=== PATIENT | female | born 1990 | race Caucasian/White ===

== ENCOUNTER 2019-08-15 20:50 | Emergency (ER) | payer OTHER ==
[~2019-08-15] VITALS: Ht 157.5 cm; Wt 62.1 kg
[2019-08-15] MEDS ORDERED: HYDROXYZINE HCL25 M2 PO (21:12)
[2019-08-15] MEDS ORDERED: DULOXETINE HCL30 MG PO (21:12)
[2019-08-15] MEDS ORDERED: CORLANOR5 MG PO (21:13)
[2019-08-15] MEDS ORDERED: ALTAVERA1 EACH PO (21:13)
[2019-08-15] MEDS ORDERED: BYSTOLIC10 MG PO (21:13)
[2019-08-15] MEDS ORDERED: PRILOSEC10 MG PO (21:14)
[2019-08-15] MEDS ORDERED: LAMOTRIGINE250 MG PO (21:15)
[2019-08-15] MEDS ORDERED: XANAX 0.5 MG0.5 MG PO (21:16)
[2019-08-15] MEDS ORDERED: BACLOFEN 10MG T10 MG PO (21:16)
[2019-08-15] MEDS ORDERED: BOTOX200 UNIT INJECTION (21:17)
[2019-08-15] MEDS ORDERED: MIDODRINE HCL 55 M1 PO (21:17)
[2019-08-15] MEDS ORDERED: BIOTIN1 M1 PO (21:18)
[2019-08-15] MEDS ORDERED: ONZETRA XSAIL11 MG NARES (21:18)
[2019-08-15] MEDS ORDERED: RIZATRIPTAN10 MG PO (21:18)
[2019-08-15] MEDS ORDERED: EMGALITY120 MG/1 M INJECTION (21:19)
[2019-08-15 21:23] LABS: ABSOLUTE BASOPHILS 0.1 thou/uL (0.0-0.2); ABSOLUTE EOSINOPHILS 0.1 thou/uL (0.0-0.7); ABSOLUTE LYMPHOCYTES 2.4 thou/uL (0.8-5.3); ABSOLUTE MONOCYTES 0.4 thou/uL (0.0-1.2); ABSOLUTE NEUTROPHILS 5.3 thou/uL (1.6-8.1); BASOPHILS 1.4 %; EOSINOPHILS 0.7 %; HEMATOCRIT 39.8 % (37.0-47.0); HEMOGLOBIN 13.8 gm/dL (12.0-15.0); LYMPHOCYTES 28.6 %; MCH 31.7 pg (26.0-34.0); MCHC 34.8 g/dL (28.0-37.0); MCV 91.3 fL (80.0-100.0); MONOCYTES 4.7 %; MPV 9.2 fl. (7.2-11.1); NUCLEATED RBCS 0 /100WBC; PLATELET COUNT* 235 thou/uL (150-400); POLYS 64.6 %; RBC 4.36 mil/uL (4.20-5.00); RDW-CV 12.9 % (10.5-14.5); WBC 8.2 thou/uL (4.0-11.0)
[2019-08-15 21:29] LABS: CALCIUM 9.3 mg/dL (8.5-10.1); POTASSIUM 3.6 mmol/L (3.5-5.1)
[2019-08-15 21:34] LABS: ALBUMIN 4.3 g/dL (3.4-5.0); TOTAL BILIRUBIN 0.2 mg/dL (<0.1-1.0); TOTAL PROTEIN 7.8 g/dL (6.4-8.2)
[2019-08-15 22:37] LABS: URINE BILIRUBIN NEGATIVE (Negative); URINE BLOOD NEGATIVE (Negative); URINE CLARITY CLEAR; URINE COLOR YELLOW; URINE GLUCOSE-RANDOM NEGATIVE (Negative); URINE KETONES NEGATIVE (Negative); URINE LEUKOCYTES-REFLEX NEGATIVE (Negative); URINE NITRITE-REFLEX NEGATIVE (Negative); URINE PROTEIN NEGATIVE (Negative); URINE SPECIFIC GRAVITY <= 1.005 (1.005-1.030); URINE UROBILINOGEN 0.2 E.U./dl (0.2-1.0)
[2019-08-16 00:24] VITALS: BP 120/79
--- NOTE | 2019-08-16 12:57 | EKG ---
[place] [address] ELECTROCARDIOGRAM REPORT Name: DUKE ALLEN JANUARY Room: [facility].#: [id number] Admission: 08/15/19 Attend Phys: Discharge: 08/16/19 Date of : 88 Report #: [id number] THIS REPORT FOR: //name// [facility] ED Test Date: 2019-08-15 Test Time: 20:54:43 Pat Name: DUKE ALLEN Department: Room: Gender: F Vp Product: [place] : 1990 Requested By: Josee Nguyen Order Number: [id number] MD: Tylre Nash Measurements Intervals [place] Rate: 84 P: 73 FL: 158 QRS: 54 QRSD: 87 T: 53 QT: 386 QTc: 457 Interpretive Statements Sinus rhythm No previous ECG available for comparison Electronically Signed On 08-16-2019 12:57:12 HYDRAULIC BLOCKER by Tyler Nash [email or web address] <ELECTRONICALLY SIGNED> By: Tyler Nash MD, [facility] 08/16/19 [id number] Tyler Nash MD, FACC /EPI
== END 2019-08-16 00:24 | disposition home or self-care (01) ==
LOC: M.ERS 20:50
PROVIDERS: Emergency Medicine
DX: F41.9 Anxiety disorder, unspecified (principal); Z88.0 Allergy status to penicillin; Z88.1 Allergy status to other antibiotic agents; Z91.040 Latex allergy status